=== PATIENT | male | born 1980 | race Caucasian/White ===

== ENCOUNTER 2020-12-05 12:15 | Emergency (ER) | payer OTHER, SELFPAY ==
--- NOTE | ~2020-12-05 | US_ITS ---
EXAMINATION: US VENOUS ULTRASOUND WITH DOPPLER LOWER EXTREMITY, BILATERAL CLINICAL INFORMATION: Lower extremity pain. History of DVT. COMPARISON: None TECHNIQUE: Ultrasound of the deep veins is performed from the hip to the calf with compression sonography and color and pulse Doppler assessment. Spectral analysis with color-flow imaging is performed. FINDINGS: RIGHT: There is normal venous compression and respiratory variation and augmented flow. The visualized common femoral vein, superficial femoral vein, profunda femoral vein, popliteal vein, and the trifurcation region shows no evidence of deep venous thrombosis. There is no significant popliteal fossa cyst. LEFT: The left common femoral vein is patent. The left profunda is patent. There is linear echogenic material along the wall of the left superficial femoral and popliteal veins and slightly diminished compression suggestive of changes from old DVT. No definite evidence of acute DVT is seen. The left profunda and posterior tibial and peroneal veins are patent. There is no significant popliteal fossa cyst. US/US venous duplex LE BI IMPRESSION: No DVT demonstrated in the right lower extremity. Linear echogenic material against the wall of the left superficial femoral and popliteal veins suggestive of changes from old DVT. No evidence of acute DVT is seen. If there is strong clinical suspicion of acute DVT, short-term follow-up exam in several days would be recommended.
[2020-12-05 12:17] VITALS: BP 159/90; PULSE 70; RESP 18; TEMP 36.8; O2SAT 97; BMI 28.4
--- NOTE | 2020-12-05 13:00 | ED_ITS ---
HPI - Extremity Problem General Chief complaint: Extremity Problem Stated complaint: [facility]ST DVT Time Seen by Provider: 12/05/20 12:31 Source: patient Mode of arrival: ambulatory History of Present Illness HPI Narrative: 40-year-old male with a past medical history of factor 5 Leiden and DVT presenting to the ED complaining of bilateral lower extremity pain x4 days. States symptoms feel similar to prior DVT. Admits previously was on Coum florencia and Pradaxa, currently on no anticoagulation. Admits smokes cigarettes. Denies recent travel, lower extremity swelling, fever, cough, chest pain, worsening shortness of breath MD Complaint: extremity pain Related Data Allergies Allergy/AdvReac Type Severity Reaction Status Date / Time Penicillins [PENICILLINS] Allergy Unknown UNKNOWN Verified 12/05/20 12:21 Review of Systems Review of Systems: Constitutional: No Fever, No Chills Cardiovascular: No Chest Pain, +chronic SOB (from asthma and smoking) Respiratory: No Cough Musculoskeletal: + joint pain, No Myalgias, No Joint Swelling Skin: No Skin Lesions, No rash Neuro: No Weakness, No Numbness, No Paresthesias Yes all other systems are reviewed and are negative [facility] Past Medical History Attestation statement: The following information was validated with the patient. Medical History (Updated 12/05/20 @ 15:12 by LETHA Pardo) DVT (deep venous thrombosis) Social History Social History Advance Directives: No Advance Directives Information Provided: No Physical Exam Vital Signs: Vital Signs: Last Vital Signs Temp 98.2 F 12/05/20 12:17 Pulse 70 12/05/20 12:17 Resp 18 12/05/20 12:17 BP 159/90 H 12/05/20 12:17 Pulse Ox 97 12/05/20 12:17 Body Mass Index 28.4 Const: General: cooperative and healthy appearing Orientation/consciousness: patient oriented x3 Limitations: no limitations HENMT: Head: Yes normal to inspection Ears: hearing grossly normal bilaterally General nose exam: Normal external nose present Face and sinus: Yes normal facial exam Eyes: General: appearance normal, both eyes and all related structures EOM: EOMs intact bilaterally Neck: Neck: Yes normal visual inspection and Yes no lymphadenopathy Resp: Effort & Inspection: normal respiratory effort Auscultation: clear to auscultation bilaterally and no wheezes Cardio: Rate: regular rate Heart sounds: S1 normal heart sound present and S2 normal heart sound present Skin: Rashes: no rashes Wounds: no wounds Neuro: General: patient oriented x3 Gait exam (Neuro): Normal gait present Extrem: Other: +mild LLE calf ttp. No swelling. NV intact No LE edema. General: Yes normal to inspection and Yes no pedal edema Course Course Course Narrative: US venous duplex LE BI IMPRESSION: No DVT demonstrated in the right lower extremity. Linear echogenic material against the wall of the left superficial femoral and popliteal veins suggestive of changes from old DVT. No evidence of acute DVT is seen. If there is strong clinical suspicion of acute DVT, short-term follow-up exam in several days would be recommended. MDM - Extremity (Nontraumatic) MDM Narrative Medical decision making narrative: 40-year-old male with a past medical history of factor 5 Leiden and DVT presenting to the ED complaining of bilateral lower extremity pain x4 days. On exam VSS, NAD, lunghs CTA, physical exam as above. Concern for DVT. Low concern for PE. Plan: Will obtain venous duplex ultrasound Discharge Plan Discharge Clinical Impression: Lower extremity pain Qualifiers: Laterality: bilateral Qualified Code(s): M79.604 - Pain in right leg Patient Disposition: Home, Self-Care Instructions: Musculoskeletal Pain (ED) Additional Instructions: Your ultrasound was negative for an acute to blood clot. It did show old changes in the left eye. You should follow-up with her primary care doctor. If you still have concern for blood clotting a leg should have a repeat ultrasound in 5-7 days. If he develops any shortness of breath, fever, cough, pain persists or worsens return to the ED Referrals: Radha Arnold MD [Primary Care Provider] - 2 days
== END 2020-12-05 15:31 | disposition home or self-care (01) ==
PROVIDERS: Emergency Provider Emergency Medicine Emergency Medical Services; PCP Internal Medicine
DX: R60.0 Localized edema (principal); M79.604 Pain in right leg; M79.605 Pain in left leg; Z79.01 Long term (current) use of anticoagulants
CPT/HCPCS: 93970; 99283; 99284

== ENCOUNTER 2025-08-08 12:31 | Outpatient (AMB) | payer OTHER, SELFPAY ==
--- NOTE | 2025-08-08 12:38 | MHC.OFFWIV ---
Intake Vital Signs 08/08/25 12:39 Height 6 ft 5 in Weight 256 lb BMI 30.4 BP 130/78 Blood Pressure Location Lt brachial Position Sitting Pulse 78 Pulse Source Pulse Oximeter Temp 98.7 F Temp Source Oral Pulse Oximetry (%) 98 Oxygen Delivery Method Room Air Intake Visit Reasons: ep intestinal distress for about a week Intake Note: pt is here for lose bowels/diarrhea for 1 week Allergies Penicillins (PENICILLINS) Allergy (Unknown, Verified 08/08/25 12:41) UNKNOWN Medication List - Last Reconciled 08/08/25 by Jaqueline Nguyen NP albuterol sulfate 90 mcg/actuation (Ventolin HFA) 2 puffs inhalation QID PRN bupropion HCl XL 150 mg PO DAILY escitalopram oxalate 10 mg PO DAILY hydroxyzine pamoate mg PO ondansetron 8 mg PO Q8H Do you need a note to return to daycare/school/sports/work: Yes HPI HPI Comments History of Present Illness Details 44 y/o Male patient who presents to the walk in clinic with c/o Loose Stools for 1 week. Reports Loose stools to diarrhea frequently. Denies any changes to his diet - but admits to eating out ([employer] sandwich for breakfast and pre-parked Cold sandwiches for lunch). Denies any new medications or OTC medicines. Denies Fevers, chills, Nausea or vomiting. Reports taking Imodium with temporarily relief. He has not been seen since 2020 - he has an upcoming appointment with new PCP. [facility] Medical History (Updated 08/08/25 @ 12:55 by Jaqueline Nguyen NP) Diarrhea DVT (deep venous thrombosis) Social History Substance Use Type: Marijuana Review of Systems Const All systems reviewed & are unremarkable except as noted in HPI and below Physical Exam Vital Signs: Last Vital Signs Temp 98.7 F 08/08/25 12:39 Pulse 78 08/08/25 12:39 BP 130/78 08/08/25 12:39 Pulse Ox 98 08/08/25 12:39 Oxygen Delivery Method Room Air 08/08/25 12:39 BMI result Body Mass Index 30.4 Const General: no acute distress Nutritional Appearance: overweight Orientation/consciousness: patient oriented x3 GI Inspection: Yes Abdominal panniculus present Palpation (GI): Soft to palpation Auscultation: normal bowel sounds Neuro General: patient oriented x3, gait normal and moves all extremities Psych Speech and movement: Normal speech and movement present Assessment & Plan Assessment & Plan (1) Diarrhea: Code(s): R19.7 - Diarrhea, unspecified Plan: Ordered Stool culture Ordered Zofran and Famotidine. Liquid/BLAND diet for few days, advance to solids slowly. Orders: Orders GI Panel Today R19.7 - Diarrhea, unspecified Medications: New famotidine 20 mg PO BEDTIME 20 tabs 0RF R19.7 - Diarrhea, unspecified ondansetron 8 mg PO Q8H 20 tabs 0RF R19.7 - Diarrhea, unspecified Coding Level of Care Code New Pt Level 4 (32755) Diagnoses Diarrhea R19.7 Time Spent (min) 20
[2025-08-08 12:39] VITALS: BP 130/78; PULSE 78; TEMP 37.1; O2SAT 98; BMI 30.4
== END 2025-08-08 13:10 | disposition home or self-care (01) ==
PROVIDERS: PCP Internal Medicine; Visit Provider Nurse Practitioner Family
DX: R19.7 Diarrhea, unspecified (principal)

== ENCOUNTER → 2025-08-08 12:31 | Outpatient (BNVA) | payer OTHER, SELFPAY | PROVIDERS: PCP Internal Medicine; Visit Provider Nurse Practitioner Family | DX: R19.7 Diarrhea, unspecified (principal) | CPT/HCPCS: 99202 ==